=== PATIENT | male | born 1970 | race Caucasian/White ===

== ENCOUNTER 2023-02-23 14:26 | Day surgery (SDC) | payer SELFPAY ==
[2023-02-23] MEDS ORDERED: Decadron 4 MG INJ IV ONE (14:27)
[2023-02-23] MEDS ORDERED: Sodium Chloride 0.9(Preservative Free) 10 ML IJ ONE (14:27)
[2023-02-23] MEDS ORDERED: XYLOCAINE-MPF 1% 5ML SDV IJ ONE (14:27)
[2023-02-23] MEDS ORDERED: Lactated Ringers 1,000 ML IV ONE (17:20)
--- NOTE | 2023-02-23 20:52 | XRAY ---
Indication: Left L3-L5 transforaminal LORETTA. Intraoperative fluoroscopy provided for 50 seconds. 8 digital spot images submitted for interpretation demonstrates posterior needle tips projecting over the expected left L3 and L4 nerve roots. Small amount of contrast injected for needle tip placement. Correlate with intraoperative findings/report. Incidental bilateral L4-L5 fusion hardware.
--- NOTE | 2023-02-24 09:17 | XRAY ---
50 seconds of fluoroscopy was used in surgery for a left L3-L5 transforaminal LORETTA.
== END 2023-02-23 17:43 | disposition home or self-care (01) ==
LOC: SDC-PAIN 14:26
PROVIDERS: ATTEND Psychiatry & Neurology Pain Medicine
DX: M54.16 Radiculopathy, lumbar region (principal)
CPT/HCPCS: 64483; 64484; 72100; 77003; J1100; Q9966